=== PATIENT | male | born 1950 | race Caucasian/White ===

== ENCOUNTER 2018-07-04 10:23 | Emergency (ER) | payer MEDICARE, OTHER ==
[~2018-07-04] VITALS: Ht 195.6 cm; Wt 93.0 kg
[2018-07-04 10:27] VITALS: BP 124/88
[2018-07-04] MEDS ORDERED: LIDOCAINE 1% (LOCAL ANESTH.) PF 5ml SDV ONE (10:55)
[2018-07-04] MEDS ORDERED: LIDOCAINE 1% HCL (LOCAL ANESTH.) INJ 20ML MDV IJ ONE (11:00)
== END 2018-07-04 11:35 | disposition home or self-care (01) ==
LOC: ER 10:23 → EDBD 10:23 → ER 11:35
DX: S51.811A Laceration without foreign body of right forearm, initial encounter (principal); E78.5 Hyperlipidemia, unspecified; W25.XXXA Contact with sharp glass, initial encounter; Y93.89 Activity, other specified; Y99.8 Other external cause status; Y92.89 Other specified places as the place of occurrence of the external cause
CPT/HCPCS: 12002